=== PATIENT | female | born 1970 | race Two or more races ===

== ENCOUNTER 2020-10-11 09:43 | Day surgery (SDC) | payer OTHER ==
[~2020-10-11] VITALS: Ht 142.2 cm; Wt 48.0 kg
[~2020-10-11 09:43] MED LIST: BUPIVACAINE/PF 0.5% ONE; EPINEPHRINE 1 MG/ML, 1ML ONE
[2020-10-11] MEDS ORDERED: ROCURONIUM 10MG/ML,5ML ONE (10:02)
[2020-10-11] MEDS ORDERED: CEFAZOLIN 1,000 MG ONE (10:02)
[2020-10-11] MEDS ORDERED: ONDANSETRON 2MG/ML, 2ML ONE ×2 (10:02→12:56)
[2020-10-11] MEDS ORDERED: GLYCOPYRROLATE 0.2MG/1ML, 5ML ONE (10:02)
[2020-10-11] MEDS ORDERED: SUCCINYLCHOLINE 20 MG/ML, 10ML ONE (10:02)
[2020-10-11] MEDS ORDERED: NEOSTIGMINE 1 MG/ML, 10ML ONE (10:02)
[2020-10-11] MEDS ORDERED: PROPOFOL 10 MG/ML, 20ML ONE (10:02)
[2020-10-11] MEDS ORDERED: MIDAZOLAM 1 MG/ML, 2ML ONE (10:02)
[2020-10-11] MEDS ORDERED: DEXAMETHASONE 4 MG/ML, 1ML ONE (10:02)
[2020-10-11] MEDS ORDERED: FENTANYL PF 100 MCG/2ML ONE (10:02)
[2020-10-11] MEDS ORDERED: PLEASE ENTER HEIGHT AND WEIGHT MC SCH ×2 (10:30→11:00)
[2020-10-11] MEDS ORDERED: HYDROcodone/APAP 7.5-325MG/15ML UDC PO PRN (10:30)
[2020-10-11] MEDS ORDERED: HYDROmorphone 1 MG/ML, 1ML INJ IVPush PRN (10:30)
[2020-10-11] MEDS ORDERED: CHLORHEXIDINE 15 ML UDC PO ONE (10:30)
[2020-10-11] MEDS ORDERED: FENTANYL PF 100 MCG/2ML IV PRN (10:30)
[2020-10-11] MEDS ORDERED: PROMETHAZINE 25 MG/ML, 1ML IVPush PRN (10:30)
[2020-10-11] MEDS ORDERED: PLEASE ENTER ALLERGIES MC SCH (10:30)
[2020-10-11] MEDS ORDERED: MEPERIDINE/PF 25MG/0.5ML IVPush PRN (10:30)
[2020-10-11 10:42] VITALS: BP 164/97
[2020-10-11 10:42] LABS: BASOPHILS % (AUTO) 1 % (0-1); EOSINOPHILS % (AUTO) 2 % (1-7); LYMPHOCYTES % (AUTO) 12 % (22-44); MEAN CORPUSCULAR HEMOGLOBIN 31.2 pg (27.0-34.8); MEAN CORPUSCULAR HGB CONC 33.8 g/dL (32.4-35.8); MEAN PLATELET VOLUME 9.5 fL (7.4-10.4); MONOCYTES % (AUTO) 5 % (2-9); NEUTROPHILS % (AUTO) 80 % (42-75); PLATELET COUNT 341 x10^3/uL (130-400); RED BLOOD COUNT 4.66 x10^6/uL (3.82-5.3); RED CELL DISTRIBUTION WIDTH 14.3 % (9.6-15.2)
[2020-10-11] MEDS ORDERED: CHLORHEXIDINE 15 ML UDC ONE (10:42)
[2020-10-11 10:43] LABS: MD NO
[2020-10-11] MEDS ORDERED: INSULIN REGULAR 100 UNITS/ML, 3ML VIAL SQ-INSULIN ONE (11:00)
[2020-10-11] MEDS ORDERED: INSULIN SINGLE DOSE, ER ONE (11:01)
[2020-10-11] MEDS ORDERED: NOVOLOG SQ (11:07)
[2020-10-11] MEDS ORDERED: LISI30TA4 PO (11:11)
[2020-10-11] MEDS ORDERED: INSU100V8 SQ (11:11)
[2020-10-11] MEDS ORDERED: SODIUM CHLORIDE 0.9% 1,000 ML IV SCH (11:30)
[2020-10-11 11:36] LABS: ALANINE AMINOTRANSFERASE 25 U/L (12-78); ALBUMIN 3.8 g/dL (3.4-5.0); ANION GAP 12 mmol/L (5-15); CALCIUM 9.1 mg/dL (8.5-10.1); CHLORIDE 98 mmol/L (98-107); CREATININE 7.94 mg/dL (0.55-1.02)
[2020-10-11 11:38] LABS: ALKALINE PHOSPHATASE 141 U/L (45-117); BILIRUBIN,TOTAL 0.8 mg/dL (0.2-1.0); TOTAL PROTEIN 9.5 g/dL (6.4-8.2)
[2020-10-11] MEDS ORDERED: ONDANSETRON 2MG/ML, 2ML IVPush PRN (12:00)
[2020-10-11] MEDS ORDERED: LIDOCAINE-MPF 1%, 2ML INFIL ONE (12:00)
[2020-10-11] MEDS ORDERED: OXYcodone 5 MG/5 ML ORAL.SOL UDC PO PRN (12:00)
[2020-10-11] MEDS ORDERED: LACTATED RINGERS 1,000 ML IV SCH (12:00)
[2020-10-11] MEDS ORDERED: OXYcodone 5 MG/5 ML ORAL.SOL UDC ONE (12:57)
== END 2020-10-11 16:05 | disposition home or self-care (01) ==
LOC: OUT 09:43
PROVIDERS: ATTEND Surgery
DX: E11.22 Type 2 diabetes mellitus with diabetic chronic kidney disease (principal); I12.0 Hypertensive chronic kidney disease with stage 5 chronic kidney disease or end stage renal disease; N18.6 End stage renal disease; Z79.4 Long term (current) use of insulin; Z79.899 Other long term (current) drug therapy; Z86.16 Personal history of COVID-19; Z90.49 Acquired absence of other specified parts of digestive tract; Z98.890 Other specified postprocedural states; Z83.3 Family history of diabetes mellitus
CPT/HCPCS: 36415; 49324; 71045; 80053; 82962; 85025; 87635; 93005; C1726; J0171; J0330; J0690; J1100; J1815; J2250; J2405; J2704; J2710; J3010

== ENCOUNTER 2020-10-11 17:45 | Inpatient (IN) | payer OTHER ==
[~2020-10-11] VITALS: Ht 147.3 cm; Wt 47.2 kg
[~2020-10-11 17:45] MED LIST changes: -BUPIVACAINE/PF 0.5% ONE; -EPINEPHRINE 1 MG/ML, 1ML ONE; +INSU100V8 SQ; +LISI30TA4 PO; +NOVOLOG SQ
--- NOTE | 2020-10-11 18:16 | NUR ---
BIBA FOR SYNCOPE AFTER SURGERY FROM THIS AM. PER EMS PT WAS BEING DRIVEN HOME WHEN SHE BECAME UNCONSCIOUS IN CAR. PT HAD PERITONEAL DIALYSIS CATHETER PLACED IN RIGHT ABD EARLIER TODAY. PER EMS REPORT PTS OXYGEN WAS IN THE 70'S, PUPILS SMALL AND CONSTRICTED AND BP 80'S/60'S. EMS GAVE 1 MG NARCAN WITH IMPROVEMENT IN OXYGEN AND BP. PT PLACED ON OXYGEN NOW SATURATING 97-99% ON 2 L NC. BLOOD SUGAR 228 FROM EMS. PT STATES SHE DOES NOT REMEMBER ANYTHING AFTER GOING IN FOR SURGERY THIS AM. PT HAS LEFT CHEST DIALYSIS CATHETER IN PLACE AND SHE STATES SHE GETS DIALYSIS TU//[facility] WITH [facility] Y[facility]. PT IS ANSWERING A&O QUESTIONS APPROPRIATELY BUT IS VERY LETHARIGC AND RESPONSIVE TO VERBAL STIMULI. PTS APPEARS TO BE JAUNDICE AND PALE THROUGHOUT. SON AT BEDSIDE. PT HAS DC PAPERWORK WHICH STATES LAST PAIN MED WAS GIVEN AT 1300 FROM SUR[facility]ERY [facility]ENTER.
--- NOTE | 2020-10-11 18:17 | NUR ---
OKAY WITH USING PIV ALREADY PLACED
--- NOTE | 2020-10-11 18:17 | NUR ---
PT ARRIVED WITH 20 GUAGE PIV PLACED FROM EARLIER SURGERY. IV IS CDI, AND DATED FROM TODAY. IV ASSESSED AND PATENT.
--- NOTE | 2020-10-11 18:22 | NUR ---
PT STATES SHE DOES NOT PRODUCE URINE ANYMORE. DR NIETO UPDATED
[2020-10-11 18:28] LABS: PH, VENOUS 7.283 pH (7.320-7.420)
[2020-10-11 18:30] LABS: MEAN CORPUSCULAR HEMOGLOBIN 30.1 pg (27.0-34.8); MEAN CORPUSCULAR HGB CONC 32.5 g/dL (32.4-35.8); MEAN PLATELET VOLUME 9.6 fL (7.4-10.4); PLATELET COUNT 279 x10^3/uL (130-400); RED BLOOD COUNT 4.24 x10^6/uL (3.82-5.3); RED CELL DISTRIBUTION WIDTH 14.3 % (9.6-15.2)
[2020-10-11 18:42] LABS: ALANINE AMINOTRANSFERASE 34 U/L (12-78); ALBUMIN 3.2 g/dL (3.4-5.0); ANION GAP 11 mmol/L (5-15); CALCIUM 8.4 mg/dL (8.5-10.1); CHLORIDE 104 mmol/L (98-107); CREATININE 7.82 mg/dL (0.55-1.02)
[2020-10-11 18:44] LABS: ALKALINE PHOSPHATASE 123 U/L (45-117); BILIRUBIN,TOTAL 0.3 mg/dL (0.2-1.0); TOTAL PROTEIN 8.1 g/dL (6.4-8.2)
[2020-10-11 18:51] LABS: MD YES
[2020-10-11 18:53] LABS: BAND#(MANUAL) 0.27 x10^3/uL; BANDS%(MANUAL) 1 % (0-7); LYMPH#(MANUAL) 0.27 x10^3/uL (1-3.4); LYMPHS% (MANUAL) 1 % (22-44); METAMYELOCYTES# (MANUAL) 0.27 x10^3/uL (0-0); METAMYELOCYTES% (MANUAL) 1 % (0-1); MONOS% (MANUAL) 4 % (2-9); SEG#(MANUAL) 25.48 x10^3/uL (1.8-6.8); SEGS% (MANUAL) 93 % (42-75)
[2020-10-11 18:54] LABS: <PLATELET ESTIMATE> ADEQUATE; <PLT MORPHOLOGY> NORMAL PLT MORPH; <RBC MORPHOLOGY> NORMAL
--- NOTE | 2020-10-11 18:54 | NUR ---
BEDSIDE REPORT GIVEN TO KHADAR CHI
[2020-10-11 18:57] LABS: ACETONE, SERUM Moderate(40mg/dL) (Negative)
[2020-10-11] MEDS ORDERED: CEFTRIAXONE PMX 1GM/50ML 50 ML ONE (19:29)
[2020-10-11] MEDS ORDERED: CEFTRIAXONE PMX 1GM/50ML 50 ML IVPB ONE (19:30)
[2020-10-11] MEDS ORDERED: VANCOMYCIN PER PHARMACY MC ONE (19:30)
[2020-10-11] MEDS ORDERED: PIPERACILLIN/TAZO/PMX 3.375GM 50 ML IVPB ONE (19:30)
--- NOTE | 2020-10-11 19:30 | NUR ---
spoke with dr. ware, pt unable to produce urine because of kidney failure. pt states last time she urinated was [address] ware ok to hold off of ua, source seems to be pnemonia
--- NOTE | 2020-10-11 19:49 | NUR ---
ABX HUNG AFTER BLOOD CULTURES
[2020-10-11] MEDS ORDERED: VANCOMYCIN 1,200 MG in SODIUM CHLORIDE 0.9% 250 ML IV ONE (20:00)
[2020-10-11] MEDS ORDERED: ONDANSETRON 2MG/ML, 2ML ONE (21:01)
[2020-10-11] MEDS ORDERED: PIPERACILLIN/TAZO/PMX 3.375GM 50 ML ONE (21:12)
--- NOTE | 2020-10-11 21:25 | NUR ---
report given to vivek castillo
[2020-10-11] MEDS ORDERED: ONDANSETRON 2MG/ML, 2ML IVPush ONE (21:30)
[2020-10-11 21:56] VITALS: BP 159/81
[2020-10-11] MEDS ORDERED: hydrALAzine 20 MG/ML, 1ML IVPush PRN (22:00)
[2020-10-11] MEDS ORDERED: OXYcodone IR 5MG TABLET PO PRN (22:00)
[2020-10-11] MEDS ORDERED: ONDANSETRON ODT 4 MG PO PRN (22:00)
[2020-10-11] MEDS ORDERED: morphine SULFATE 10 MG/ML, 1ML IVPush PRN (22:00)
[2020-10-11] MEDS ORDERED: PROMETHAZINE 25 MG/ML, 1ML IM PRN (22:00)
[2020-10-11] MEDS ORDERED: POLYETHYLENE GLYCOL 17 GM PACKET PO PRN (22:00)
[2020-10-11] MEDS ORDERED: AZITHROMYCIN 500 MG in SODIUM CHLORIDE 0.9% 250 ML IV SCH (22:00)
[2020-10-11] MEDS ORDERED: BISACODYL 10 MG SUPP PR PRN (22:00)
[2020-10-11] MEDS ORDERED: DOCUSATE 100 MG CAPSULE PO PRN (22:00)
[2020-10-11] MEDS ORDERED: ACETAMINOPHEN 325 MG TABLET PO PRN (22:00)
[2020-10-11] MEDS: HEPARIN 5,000 UNITS/ML, 1ML SQ SCH (23:33)
[2020-10-11] MEDS: INSULIN LISPRO 100 UNITS/ML, PEN SQ-INSULIN SCH (23:35)
[2020-10-12 01:32] VITALS: BP 139/72
[2020-10-12] MEDS: HEPARIN 5,000 UNITS/ML, 1ML SQ SCH ×2 (05:23→18:03)
[2020-10-12] MEDS: ONDANSETRON 2MG/ML, 2ML IVPush PRN (05:23)
[2020-10-12] MEDS: PIPERACILLIN/TAZO/PMX 2.25GM 50 ML IVPB SCH ×3 (05:24→20:44)
[2020-10-12 05:37] LABS: MEAN CORPUSCULAR HEMOGLOBIN 30.5 pg (27.0-34.8); MEAN CORPUSCULAR HGB CONC 32.9 g/dL (32.4-35.8); MEAN PLATELET VOLUME 10.1 fL (7.4-10.4); PLATELET COUNT 324 x10^3/uL (130-400); RED BLOOD COUNT 4.15 x10^6/uL (3.82-5.3); RED CELL DISTRIBUTION WIDTH 14.4 % (9.6-15.2)
[2020-10-12 05:47] LABS: MD YES
[2020-10-12 05:53] LABS: CHLORIDE 104 mmol/L (98-107)
[2020-10-12 06:05] LABS: BAND#(MANUAL) 0.56 x10^3/uL; BANDS%(MANUAL) 2 % (0-7); LYMPH#(MANUAL) 1.11 x10^3/uL (1-3.4); LYMPHS% (MANUAL) 4 % (22-44); MONOS#(MANUAL) 1.11 x10^3/uL (0.3-2.7); MONOS% (MANUAL) 4 % (2-9); SEG#(MANUAL) 25.02 x10^3/uL (1.8-6.8); SEGS% (MANUAL) 90 % (42-75)
[2020-10-12 06:06] LABS: <PLATELET ESTIMATE> ADEQUATE; <PLT MORPHOLOGY> NORMAL PLT MORPH; <RBC MORPHOLOGY> NORMAL; ALANINE AMINOTRANSFERASE 14 U/L (12-78); ALKALINE PHOSPHATASE 112 U/L (45-117); ANION GAP 12 mmol/L (5-15); BILIRUBIN,TOTAL 0.4 mg/dL (0.2-1.0); CALCIUM 8.7 mg/dL (8.5-10.1); CHOL/HDL RATIO 2.2; CHOLESTEROL, TOTAL 157 mg/dL (140-239); CREATININE 8.35 mg/dL (0.55-1.02); HDL CHOL % 46 % (28-40); HDL CHOLESTEROL (DIRECT) 72 mg/dL (40-60); LDL CHOLESTEROL,CALCULATED 64 mg/dL (54-169); LDL/HDL RATIO 0.9 (0.5-3.0); TRIGLYCERIDES 107 mg/dL (50-200); VLDL CHOLESTEROL 21 mg/dL (0-25)
[2020-10-12] MEDS ORDERED: INSULIN LISPRO 100 UNITS/ML, PEN SQ-INSULIN SCH (07:00)
[2020-10-12] MEDS ORDERED: CARVEDILOL 3.125 MG TABLET ONE (07:26)
[2020-10-12] MEDS ORDERED: ACETAMINOPHEN 325 MG TABLET PO PRN (07:30)
[2020-10-12 07:38] VITALS: BP 150/92
[2020-10-12] MEDS: INSULIN LISPRO 100 UNITS/ML, PEN SQ-INSULIN SCH ×4 (07:42→20:06)
[2020-10-12] MEDS: LISINOPRIL 20 MG TABLET PO SCH (07:50)
[2020-10-12] MEDS: CARVEDILOL 6.25 MG TABLET PO SCH ×2 (07:50→17:57)
[2020-10-12] MEDS: INSULIN GLARGINE 100 UNITS/ML, PEN SQ-INSULIN SCH ×2 (08:09→20:46)
[2020-10-12] MEDS: METOCLOPRAMIDE 5 MG/ML, 2ML IVPush PRN ×3 (08:32→19:59)
[2020-10-12 11:00] LABS: ABSOLUTE RETICS # 0.038 x10^6/uL (0.5-2.5); RED BLOOD COUNT 3.7 x10^6/uL (3.82-5.3); RETICULOCYTE COUNT % 1.02 % (0.5-1.5)
[2020-10-12 11:06] LABS: CALCIUM 8.8 mg/dL (8.5-10.1)
[2020-10-12 14:27] VITALS: BP 107/66
[2020-10-12 17:03] LABS: CELLS COUNTED 37
[2020-10-12 17:56] VITALS: BP 106/63
[2020-10-12 19:18] VITALS: BP 98/60
[2020-10-12] MEDS ORDERED: CEFTRIAXONE PMX 2GM/50ML 50 ML IVPB SCH (20:00)
[2020-10-13 00:27] VITALS: BP 97/58
[2020-10-13] MEDS: PIPERACILLIN/TAZO/PMX 2.25GM 50 ML IVPB SCH ×3 (05:04→21:15)
[2020-10-13] MEDS: HEPARIN 5,000 UNITS/ML, 1ML SQ SCH ×2 (05:04→18:18)
[2020-10-13 05:11] VITALS: BP 116/67
[2020-10-13] MEDS: CARVEDILOL 6.25 MG TABLET PO SCH ×2 (05:12→18:17)
[2020-10-13] MEDS: METOCLOPRAMIDE 5 MG/ML, 2ML IVPush PRN ×4 (05:18→21:24)
[2020-10-13 05:50] LABS: BASOPHILS % (AUTO) 0 % (0-1); EOSINOPHILS % (AUTO) 1 % (1-7); LYMPHOCYTES % (AUTO) 12 % (22-44); MEAN CORPUSCULAR HEMOGLOBIN 30.5 pg (27.0-34.8); MEAN CORPUSCULAR HGB CONC 33.4 g/dL (32.4-35.8); MEAN PLATELET VOLUME 10.1 fL (7.4-10.4); MONOCYTES % (AUTO) 6 % (2-9); NEUTROPHILS % (AUTO) 81 % (42-75); PLATELET COUNT 243 x10^3/uL (130-400); RED BLOOD COUNT 3.67 x10^6/uL (3.82-5.3); RED CELL DISTRIBUTION WIDTH 14.5 % (9.6-15.2)
[2020-10-13 05:52] LABS: CHLORIDE 98 mmol/L (98-107)
[2020-10-13 05:57] LABS: ALBUMIN 2.6 g/dL (3.4-5.0); ANION GAP 9 mmol/L (5-15); CALCIUM 8.3 mg/dL (8.5-10.1); CREATININE 5.81 mg/dL (0.55-1.02)
[2020-10-13 05:58] LABS: MD NO
[2020-10-13 06:49] VITALS: BP 118/66
[2020-10-13] MEDS: INSULIN LISPRO 100 UNITS/ML, PEN SQ-INSULIN SCH ×4 (08:00→21:25)
[2020-10-13] MEDS ORDERED: POTASSIUM CHLORIDE 20 MEQ TAB.ER.PRT PO ONE (08:00)
[2020-10-13] MEDS: FERROUS SULFATE 325 MG TABLET PO SCH (09:19)
[2020-10-13] MEDS: LACTOBACILLUS CHEW TABLET PO SCH ×3 (09:19→21:15)
[2020-10-13] MEDS: LISINOPRIL 20 MG TABLET PO SCH (09:19)
[2020-10-13] MEDS ORDERED: INSULIN LISPRO 100 UNITS/ML, PEN SQ-INSULIN SCH (11:00)
[2020-10-13 13:34] VITALS: BP 107/63
[2020-10-13 18:15] VITALS: BP 92/58
[2020-10-13 19:58] VITALS: BP 108/62
[2020-10-13] MEDS: INSULIN GLARGINE 100 UNITS/ML, PEN SQ-INSULIN SCH (21:26)
[2020-10-14] VITALS (10 sets, daily range): BP systolic 68–153; BP diastolic 44–80
[2020-10-14] MEDS: CARVEDILOL 6.25 MG TABLET PO SCH ×2 (05:14→18:22)
[2020-10-14] MEDS: PIPERACILLIN/TAZO/PMX 2.25GM 50 ML IVPB SCH ×3 (05:14→21:46)
[2020-10-14] MEDS: HEPARIN 5,000 UNITS/ML, 1ML SQ SCH ×2 (05:14→18:21)
[2020-10-14 05:56] LABS: BASOPHILS % (AUTO) 1 % (0-1); EOSINOPHILS % (AUTO) 3 % (1-7); LYMPHOCYTES % (AUTO) 15 % (22-44); MEAN CORPUSCULAR HEMOGLOBIN 30.6 pg (27.0-34.8); MEAN CORPUSCULAR HGB CONC 33.1 g/dL (32.4-35.8); MEAN PLATELET VOLUME 10.2 fL (7.4-10.4); MONOCYTES % (AUTO) 7 % (2-9); NEUTROPHILS % (AUTO) 75 % (42-75); PLATELET COUNT 275 x10^3/uL (130-400); RED BLOOD COUNT 3.71 x10^6/uL (3.82-5.3); RED CELL DISTRIBUTION WIDTH 14.1 % (9.6-15.2)
[2020-10-14 05:57] LABS: MD NO
[2020-10-14 05:58] LABS: ALBUMIN 2.6 g/dL (3.4-5.0); ANION GAP 11 mmol/L (5-15); CALCIUM 8.4 mg/dL (8.5-10.1); CHLORIDE 100 mmol/L (98-107); CREATININE 7.41 mg/dL (0.55-1.02)
[2020-10-14] MEDS: INSULIN LISPRO 100 UNITS/ML, PEN SQ-INSULIN SCH ×4 (07:00→21:47)
[2020-10-14] MEDS: METOCLOPRAMIDE 5 MG/ML, 2ML IVPush PRN ×2 (07:40→21:45)
[2020-10-14] MEDS: LACTOBACILLUS CHEW TABLET PO SCH ×3 (09:01→21:53)
[2020-10-14 10:39] LABS: CLOSTRIDIUM DIFFICILE ANTIGEN NEGATIVE; CLOSTRIDIUM DIFFICILE TOXIN NEGATIVE (Negative)
[2020-10-14] MEDS: SEVELAMER CARBONATE 800MG TAB PO SCH ×2 (14:27→18:22)
[2020-10-14] MEDS ORDERED: LOPERAMIDE 2 MG CAPSULE PO PRN (16:30)
[2020-10-14] MEDS ORDERED: INSULIN GLARGINE 100 UNITS/ML, PEN SQ-INSULIN SCH (21:00)
[2020-10-15] VITALS (9 sets, daily range): BP systolic 90–133; BP diastolic 59–84
[2020-10-15] MEDS: ONDANSETRON 2MG/ML, 2ML IVPush PRN (00:16)
[2020-10-15] MEDS: METOCLOPRAMIDE 5 MG/ML, 2ML IVPush PRN (03:54)
[2020-10-15] MEDS: PIPERACILLIN/TAZO/PMX 2.25GM 50 ML IVPB SCH (05:53)
[2020-10-15] MEDS: HEPARIN 5,000 UNITS/ML, 1ML SQ SCH (05:54)
[2020-10-15] MEDS: CARVEDILOL 6.25 MG TABLET PO SCH (05:54)
[2020-10-15] MEDS ORDERED: METOCLOPRAMIDE 10MG TABLET PO PRN (07:30)
[2020-10-15] MEDS: INSULIN LISPRO 100 UNITS/ML, PEN SQ-INSULIN SCH ×2 (08:05→11:55)
[2020-10-15] MEDS: SEVELAMER CARBONATE 800MG TAB PO SCH (08:32)
[2020-10-15] MEDS: LACTOBACILLUS CHEW TABLET PO SCH (08:32)
[2020-10-15] MEDS: FERROUS SULFATE 325 MG TABLET PO SCH (08:32)
[2020-10-15] MEDS ORDERED: LISINOPRIL 20 MG TABLET PO SCH (09:00)
[2020-10-15] MEDS ORDERED: ERGOCALCIFEROL 50,000 UNIT CAPSULE PO SCH (09:34)
[2020-10-15] MEDS ORDERED: METO10TA2 PO (09:53)
[2020-10-15] MEDS ORDERED: INSU100V8 SQ (09:53)
[2020-10-15] MEDS ORDERED: FERR-51 PO (09:53)
[2020-10-15] MEDS ORDERED: ERGO500017 PO (09:53)
[2020-10-15] MEDS ORDERED: ACID1TAB7 PO (09:53)
[2020-10-15] MEDS ORDERED: AZIT500T2 PO (09:53)
[2020-10-15] MEDS ORDERED: SEVE800T8 PO (09:53)
[2020-10-15] MEDS ORDERED: LOPE2CAP PO (09:53)
[2020-10-15] MEDS ORDERED: INSU100I11 SQ-INSULIN (09:53)
[2020-10-15] MEDS ORDERED: CARV6.2512 PO (09:53)
== END 2020-10-15 12:41 | disposition home or self-care (01) | DRG 871 ==
LOC: ED 21:05 → EDIP 21:25 → 4WST 21:52 → DCLOUNGE 10-15 12:20
PROVIDERS: ADMIT Internal Medicine; ATTEND Internal Medicine
PROC: 5A1D70Z Performance of Urinary Filtration, Intermittent, Less than 6 Hours Per Day (ICD-10-PCS; principal; 2020-10-14)
DX: A41.9 Sepsis, unspecified organism (principal); J15.9 Unspecified bacterial pneumonia; J96.01 Acute respiratory failure with hypoxia; J96.02 Acute respiratory failure with hypercapnia; N18.6 End stage renal disease; I12.0 Hypertensive chronic kidney disease with stage 5 chronic kidney disease or end stage renal disease; E87.2 Acidosis; E87.1 Hypo-osmolality and hyponatremia; D50.9 Iron deficiency anemia, unspecified; D63.1 Anemia in chronic kidney disease; E11.22 Type 2 diabetes mellitus with diabetic chronic kidney disease; E11.65 Type 2 diabetes mellitus with hyperglycemia; I95.9 Hypotension, unspecified; E83.51 Hypocalcemia; E87.6 Hypokalemia; Z83.3 Family history of diabetes mellitus; Z99.2 Dependence on renal dialysis; Z98.891 History of uterine scar from previous surgery; Z84.1 Family history of disorders of kidney and ureter; Z79.899 Other long term (current) drug therapy; Z79.891 Long term (current) use of opiate analgesic; Z79.01 Long term (current) use of anticoagulants
CPT/HCPCS: 36415; 36600; 70450; 71045; 74176; 80053; 80061; 80069; 82010; 82140; 82306; 82310; 82330; 82728; 82803; 82962; 83036; 83540; 83550; 83605; 83735; 83970; 84100; 84145; 84443; 84703; 85025; 85045; 86704; 86706; 87040; 87070; 87205; 87324; 87340; 89051; 90935; 90945; 93005; 93306; 96365; 96375; G0378; J0456; J0696; J1644; J2405; J2543; J2550; J3370; J1815; J2765; J7050